=== PATIENT | female | born 1950 | race Caucasian/White ===

== ENCOUNTER 2022-10-12 11:56 | Emergency (ER) | payer OTHER ==
[~2022-10-12] VITALS: Ht 154.9 cm; Wt 70.3 kg
[~2022-10-12 11:56] MED LIST: CELEBREX200MG PO
[2022-10-12] MEDS ORDERED: SINUS RINSE ST1 EACH NASAL (14:38)
[2022-10-12] MEDS ORDERED: ZITHROMAX500 MG PO (14:38)
[2022-10-12] MEDS ORDERED: ZYRTEC10 M3 PO (14:38)
[2022-10-12] MEDS ORDERED: FLONASE ALLERG9.9 ML NASAL (14:38)
== END 2022-10-12 15:03 | disposition home or self-care (01) ==
LOC: ER 11:56
DX: J06.9 Acute upper respiratory infection, unspecified (principal); J31.0 Chronic rhinitis; R50.9 Fever, unspecified; Z88.8 Allergy status to other drugs, medicaments and biological substances

== ENCOUNTER 2024-01-21 12:06 | Emergency (ER) | payer OTHER ==
[~2024-01-21] VITALS: Ht 152.4 cm; Wt 71.2 kg
[~2024-01-21 12:06] MED LIST changes: +FLONASE ALLERG9.9 ML NASAL; +SINUS RINSE ST1 EACH NASAL; +ZITHROMAX500 MG PO; +ZYRTEC10 M3 PO
[2024-01-21] MEDS ORDERED: KETOROLAC TROMETHAMINE 30 MG VIAL IM ONE (13:00)
[2024-01-21] MEDS ORDERED: MIDAZOLAM HCL 2 MG/2 ML VIAL IV PUSH STA (14:35)
[2024-01-21] MEDS ORDERED: PROPOFOL 10,000 MCG/ML VIAL IV PUSH STA (14:35)
== END 2024-01-21 15:48 | disposition home or self-care (01) ==
LOC: ER 12:07
DX: S43.085A Other dislocation of left shoulder joint, initial encounter (principal); X58.XXXA Exposure to other specified factors, initial encounter; Y93.89 Activity, other specified; Y92.018 Other place in single-family (private) house as the place of occurrence of the external cause; Y99.9 Unspecified external cause status; Z88.8 Allergy status to other drugs, medicaments and biological substances